=== PATIENT | male | born 1930 | race Caucasian/White ===

== ENCOUNTER 2018-04-04 02:32 | Emergency (ER) | payer OTHER ==
[2018-04-04 04:36] LABS: ADD MAN DIFF? NO
[2018-04-04] MEDS: ONDANSETRON (ODT) 4 MG TAB ODT (04:45)
[2018-04-04] MEDS: HYDROCODONE/APAP (5/325) TAB PO (04:45)
[2018-04-04 04:49] LABS: BASOPHIL # 0.1 10^3/ul (0.0-0.1); BASOPHILS % 0.4 % (0.0-2.0); EOSINOPHILS # 0.1 10^3/ul (0.0-0.5); EOSINOPHILS % 0.9 % (0.0-7.0); HEMATOCRIT 34.4 % (42.0-52.0); HEMOGLOBIN 10.9 g/dl (14.0-18.0); LYMPHOCYTES # 1.3 10^3/ul (0.8-2.9); LYMPHOCYTES % 8.9 % (15.0-51.0); MEAN CORPUSCULAR HEMOGLOBIN 28.1 pg (29.0-33.0); MEAN CORPUSCULAR HGB CONC 31.7 g/dl (32.0-37.0); MEAN CORPUSCULAR VOLUME 88.7 fl (82.0-101.0); MONOCYTE # 1.2 10^3/ul (0.3-0.9); MONOCYTES % 8.6 % (0.0-11.0); NEUTROPHIL # 11.4 10^3/ul (1.6-7.5); NEUTROPHILS % 80.8 % (39.0-77.0); PLATELET COUNT 321 10^3/UL (140-415); RED BLOOD COUNT 3.88 10^6/ul (4.70-6.10); RED CELL DISTRIBUTION WIDTH 14.4 % (11.5-14.5)
[2018-04-04 04:49] LABS: WHITE BLOOD COUNT 14.1 10^3/ul (4.8-10.8)
[2018-04-04 04:54] LABS: ALANINE AMINOTRANSFERASE 16 IU/L (13-69); ALBUMIN/GLOBULIN RATIO 1.25; ALKALINE PHOSPHATASE 68 IU/L (42-121); ANION GAP 5 (5-13); ASPARTATE AMINO TRANSFERASE 21 IU/L (15-46); BILIRUBIN,INDIRECT 0.5 mg/dl (0-1.1); BILIRUBIN,TOTAL 0.5 mg/dl (0.2-1.3); BLOOD UREA NITROGEN 20 mg/dl (7-20); CALCIUM 9.3 mg/dl (8.4-10.2); CARBON DIOXIDE 25 mmol/L (21-31); CHLORIDE 110 mmol/L (97-110); CREATININE 0.82 mg/dl (0.61-1.24); GLUCOSE 183 mg/dl (70-220); POTASSIUM 4.7 mmol/L (3.5-5.1); SODIUM 140 mmol/L (135-144); TOTAL PROTEIN 7.2 g/dl (6.1-8.1)
[2018-04-04 05:03] LABS: B-TYPE NATRIURETIC PEPTIDE 130 PG/ML (0-450)
[2018-04-04 06:39] LABS: URINE PH (Dip) POC 5.5 (5.0-8.5)
[2018-04-04 06:39] LABS: URINE BLOOD (Dip) POC 3+ (NEGATIVE); URINE GLUCOSE (Dip) POC Negative (NEGATIVE); URINE KETONES (Dip) POC 1+ (NEGATIVE); URINE LEUKOCYTE EST (Dip) POC Negative (NEGATIVE); URINE NITRITE (Dip) POC Negative (NEGATIVE); URINE TOTAL PROTEIN POC 1+ (NEGATIVE)
== END 2018-04-04 07:00 | disposition home or self-care (01) ==
LOC: E/R 02:32
DX: M54.5 Low back pain (principal); D64.9 Anemia, unspecified; R31.9 Hematuria, unspecified; K59.00 Constipation, unspecified; E03.9 Hypothyroidism, unspecified; E11.9 Type 2 diabetes mellitus without complications; Z79.84 Long term (current) use of oral hypoglycemic drugs
CPT/HCPCS: 71045; 72131; 80053; 81003; 82962; 83880; 85025; 99285-25

== ENCOUNTER 2018-05-25 08:03 | Emergency (ER) | payer OTHER | END 2018-05-25 10:09 | disposition home or self-care (01) | LOC: E/R 08:03 | DX: J32.9 Chronic sinusitis, unspecified (principal); E11.9 Type 2 diabetes mellitus without complications; Z79.84 Long term (current) use of oral hypoglycemic drugs; Z87.891 Personal history of nicotine dependence | CPT/HCPCS: 99283 ==

== ENCOUNTER 2018-11-28 04:18 | Inpatient (IN) | payer OTHER ==
[2018-11-28 05:06] LABS: WHITE BLOOD COUNT 1.6 10^3/ul (4.8-10.8)
[2018-11-28 05:06] LABS: ABNORMAL IP MESSAGE 1; HEMATOCRIT 29.2 % (42.0-52.0); HEMOGLOBIN 9.4 g/dl (14.0-18.0); MEAN CORPUSCULAR HEMOGLOBIN 27.6 pg (29.0-33.0); MEAN CORPUSCULAR HGB CONC 32.2 g/dl (32.0-37.0); MEAN CORPUSCULAR VOLUME 85.6 fl (82.0-101.0); MEAN PLATELET VOLUME 9.9 fl (7.4-10.4); PLATELET COUNT 183 10^3/UL (140-415); POSITIVE DIFF @See below; RED BLOOD COUNT 3.41 10^6/ul (4.70-6.10); RED CELL DISTRIBUTION WIDTH 13.8 % (11.5-14.5)
[2018-11-28 05:07] LABS: ADD MAN DIFF? YES
[2018-11-28 05:23] LABS: ALANINE AMINOTRANSFERASE 49 IU/L (13-69); ALBUMIN 3.6 g/dl (3.3-4.9); ALBUMIN/GLOBULIN RATIO 1.09; ALKALINE PHOSPHATASE 140 IU/L (42-121); ANION GAP 8 (5-13); ASPARTATE AMINO TRANSFERASE 30 IU/L (15-46); BILIRUBIN,INDIRECT 0.4 mg/dl (0-1.1); BILIRUBIN,TOTAL 0.4 mg/dl (0.2-1.3); BLOOD UREA NITROGEN 19 mg/dl (7-20); CALCIUM 9.9 mg/dl (8.4-10.2); CARBON DIOXIDE 23 mmol/L (21-31); CHLORIDE 105 mmol/L (97-110); CREATININE 0.75 mg/dl (0.61-1.24); GLUCOSE 182 mg/dl (70-220); LIPASE 342 U/L (23-300); POTASSIUM 3.3 mmol/L (3.5-5.1); SODIUM 136 mmol/L (135-144); TOTAL PROTEIN 6.9 g/dl (6.1-8.1)
[2018-11-28 05:34] LABS: TROPONIN-I < 0.012 ng/ml (0.000-0.120)
[2018-11-28 05:37] LABS: BAND NEUTROPHILS #M 0.1 10^3/ul (0.0-0.6); BAND NEUTROPHILS % (M) 9 % (0-4); BASOPHILS % (M) 3 % (0-2); EOSINOPHILS % (M) 3 % (0-7); GIANT THROMBO% (M) 5 % (0-0); LYMPHOCYTES #M 0.4 10^3/ul (0.8-2.9); LYMPHOCYTES % (M) 29 % (15-51); MONOCYTE #M 0.2 10^3/ul (0.3-0.9); MONOCYTES % (M) 17 % (0-11); PLATELET ESTIMATE NORMAL; POIKILOCYTOSIS 1+ (0-0); REACTIVE LYMPHOCYTES% (M) 1 % (0-0); SEG NEUT #M 0.6 10^3/ul (1.6-7.5); SEGMENTED NEUTROPHILS (M) % 38 % (39-77); SMUDGE%M 50 % (0-0)
[2018-11-28] MEDS: ONDANSETRON 4 MG INJ IV ×2 (05:42→07:22)
[2018-11-28] MEDS: FAMOTIDINE 20 MG TAB PO (06:27)
[2018-11-28] MEDS: LIDOCAINE/MYLANTA 40 ML BTL PO (06:27)
[2018-11-28] MEDS: BISACODYL 10 MG SUPP PR (07:21)
[2018-11-28] MEDS: SOD CHLORIDE 0.9% 1,000 ML IV ×2 (07:40→14:30)
[2018-11-28] MEDS: KETAMINE (50 MG/ML) 10 ML VIAL IV (07:41)
[2018-11-28] MEDS ORDERED: ONDANSETRON 4 MG INJ IV ×2 (11:00→13:00)
[2018-11-28] MEDS ORDERED: ACETAMINOPHEN 325 MG TAB PO (11:00)
[2018-11-28] MEDS: PIPER-TAZO 3.375 GM IV (PMX) 100 ML IVPB ×2 (11:07→21:28)
[2018-11-28] MEDS ORDERED: morphine 2 MG INJ IV (13:00)
[2018-11-28] MEDS ORDERED: GLUCOSE GEL 15 GRAM TUBE BUCCAL (13:00)
[2018-11-28] MEDS: INSULIN ASPART [NOVOLOG] 3 ML PEN SC ×3 (13:00→21:00)
[2018-11-28] MEDS ORDERED: BISACODYL 10 MG SUPP PR (13:00)
[2018-11-28] MEDS ORDERED: GLUCAGON 1 MG INJ IM (13:00)
[2018-11-28] MEDS ORDERED: GLUCOSE GEL 15 GRAM TUBE PO ×2 (13:00)
[2018-11-28] MEDS ORDERED: NACL 0.9% 3 ML SYG IV (13:00)
[2018-11-28] MEDS ORDERED: DEXTROSE 50% 50 ML SYRINGE IV ×2 (13:00)
[2018-11-28] MEDS: BISACODYL 30 ML ENEMA PR (13:11)
[2018-11-28] MEDS: METOCLOPRAMIDE 10 MG INJ IV ×3 (14:42→23:48)
[2018-11-28 16:49] LABS: UR CLARITY CLEAR (CLEAR); UR SPECIFIC GRAVITY (Dip) 1.005 (1.003-1.030)
[2018-11-28 16:50] LABS: ADD UMIC NO; UR ASCORBIC ACID NEGATIVE (NEGATIVE); UR BILIRUBIN (Dip) NEGATIVE (NEGATIVE); UR BLOOD (Dip) NEGATIVE (NEGATIVE); UR COLOR STRAW (YELLOW); UR GLUCOSE (Dip) NEGATIVE (NEGATIVE); UR KETONES (Dip) NEGATIVE (NEGATIVE); UR LEUKOCYTE ESTERASE (Dip) NEGATIVE Leu/ul (NEGATIVE); UR NITRITE (Dip) NEGATIVE (NEGATIVE); UR TOTAL PROTEIN (Dip) NEGATIVE (NEGATIVE); UR UROBILINOGEN (Dip) NEGATIVE (NEGATIVE)
[2018-11-28] MEDS: hydrALAzine 20 MG INJ IV (17:08)
[2018-11-28] MEDS: INSULIN GLARGINE [LANTus] (100 UNITS/ML) SYG SC (20:12)
[2018-11-28] MEDS: FAMOTIDINE 20 MG INJ IV (21:28)
[2018-11-29] MEDS: INSULIN ASPART [NOVOLOG] 3 ML PEN SC ×6 (00:31→21:31)
[2018-11-29] MEDS: SOD CHLORIDE 0.9% 1,000 ML IV ×2 (01:30→10:28)
[2018-11-29] MEDS ORDERED: ACCU-CHEK XX (02:00)
[2018-11-29] MEDS: PIPER-TAZO 3.375 GM IV (PMX) 100 ML IVPB ×5 (02:15→23:15)
[2018-11-29] MEDS: METOCLOPRAMIDE 10 MG INJ IV (05:28)
[2018-11-29] MEDS ORDERED: PANTOPRAZOLE 40 MG INJ IV (06:00)
[2018-11-29 07:01] LABS: ABNORMAL IP MESSAGE 1; HEMATOCRIT 31.4 % (42.0-52.0); HEMOGLOBIN 10.1 g/dl (14.0-18.0); MEAN CORPUSCULAR HEMOGLOBIN 27.4 pg (29.0-33.0); MEAN CORPUSCULAR HGB CONC 32.2 g/dl (32.0-37.0); MEAN CORPUSCULAR VOLUME 85.3 fl (82.0-101.0); MEAN PLATELET VOLUME 9.7 fl (7.4-10.4); PLATELET COUNT 185 10^3/UL (140-415); POSITIVE DIFF @See below; RED BLOOD COUNT 3.68 10^6/ul (4.70-6.10); RED CELL DISTRIBUTION WIDTH 13.7 % (11.5-14.5)
[2018-11-29 07:20] LABS: HEMOGLOBIN A1C 6.8 % (0-5.9)
[2018-11-29 07:21] LABS: ADD MAN DIFF? YES
[2018-11-29 07:25] LABS: ANION GAP 3 (5-13); BLOOD UREA NITROGEN 12 mg/dl (7-20); CALCIUM 9.3 mg/dl (8.4-10.2); CARBON DIOXIDE 27 mmol/L (21-31); CHLORIDE 114 mmol/L (97-110); CHOLESTEROL 104 mg/dl (100-200); CREATININE 0.79 mg/dl (0.61-1.24); GLUCOSE 95 mg/dl (70-220); HDL CHOLESTEROL 51 mg/dl (31-75); LDL CHOLESTEROL,CALCULATED 28 mg/dl; MAGNESIUM 1.8 mg/dl (1.7-2.5); POTASSIUM 3.5 mmol/L (3.5-5.1); SODIUM 144 mmol/L (135-144); TRIGLYCERIDES 127 mg/dl (0-149)
[2018-11-29 07:30] LABS: PREALBUMIN 17.7 mg/dl (17.6-36.0)
[2018-11-29] MEDS: FAMOTIDINE 20 MG INJ IV ×2 (08:33→21:13)
[2018-11-29] MEDS: ACETAMINOPHEN 650 MG SUPP PR (08:33)
[2018-11-29 10:29] LABS: ANISOCYTOSIS 1+ (0-0); BASOPHILS % (M) 2 % (0-2); EOSINOPHILS % (M) 4 % (0-7); GIANT THROMBO% (M) 1 % (0-0); LYMPHOCYTES #M 1.6 10^3/ul (0.8-2.9); LYMPHOCYTES % (M) 54 % (15-51); MONOCYTE #M 0.5 10^3/ul (0.3-0.9); MONOCYTES % (M) 17 % (0-11); PLATELET ESTIMATE NORMAL; POLYCHROMASIA 1+ (0-0); REACTIVE LYMPHOCYTES% (M) 2 % (0-0); SEGMENTED NEUTROPHILS (M) % 21 % (39-77); SMUDGE%M 16 % (0-0)
[2018-11-29] MEDS: ATORVASTATIN 20 MG TAB PO (21:13)
[2018-11-29] MEDS: PYRIDOSTIGMINE 60 MG TAB PO (21:13)
[2018-11-29] MEDS: INSULIN GLARGINE [LANTus] (100 UNITS/ML) SYG SC (21:31)
[2018-11-29] MEDS: TAMSULOSIN (SR) 0.4 MG CAP PO (23:15)
[2018-11-30] MEDS: SOD CHLORIDE 0.9% 1,000 ML IV ×2 (02:30→04:50)
[2018-11-30] MEDS: PIPER-TAZO 3.375 GM IV (PMX) 100 ML IVPB ×2 (06:51→12:00)
[2018-11-30] MEDS: INSULIN ASPART [NOVOLOG] 3 ML PEN SC ×2 (07:55→11:50)
[2018-11-30] MEDS: LEVOTHYROXINE 100 MCG TAB PO (08:15)
[2018-11-30] MEDS: FOLIC ACID 1 MG TAB PO (08:15)
[2018-11-30] MEDS: FAMOTIDINE 20 MG INJ IV (08:15)
== END 2018-11-30 13:01 | disposition home or self-care (01) | DRG 389 ==
LOC: E/R 04:18 → TEL 10:34
PROVIDERS: Internal Medicine
DX: K56.7 Ileus, unspecified (principal); C34.91 Malignant neoplasm of unspecified part of right bronchus or lung; C79.51 Secondary malignant neoplasm of bone; K80.10 Calculus of gallbladder with chronic cholecystitis without obstruction; G70.00 Myasthenia gravis without (acute) exacerbation; D70.1 Agranulocytosis secondary to cancer chemotherapy; D63.8 Anemia in other chronic diseases classified elsewhere; E11.9 Type 2 diabetes mellitus without complications; N40.0 Benign prostatic hyperplasia without lower urinary tract symptoms; K21.9 Gastro-esophageal reflux disease without esophagitis; M1A.9XX0 Chronic gout, unspecified, without tophus (tophi); E03.9 Hypothyroidism, unspecified; K59.00 Constipation, unspecified; Z79.4 Long term (current) use of insulin; Z98.1 Arthrodesis status; Z87.891 Personal history of nicotine dependence
CPT/HCPCS: 36415; 71045; 74018; 74176; 76705; 78226; 80048; 80053; 80061; 81003; 82962; 83036; 83690; 83735; 84134; 84484; 85025; 87040-91; 87086; 93005; 96374; 96375; 96376; 97161; 99285-25